=== PATIENT | female | born 1960 | race Two or more races ===

== ENCOUNTER → 2018-11-22 | Outpatient (CLI) | payer OTHER | END | disposition home or self-care (01) | LOC: NUCLEAR 07:00 | DX: R07.89 Other chest pain (principal) ==

== ENCOUNTER 2018-12-02 21:29 | Emergency (ER) | payer OTHER ==
[~2018-12-02] VITALS: Ht 154.9 cm; Wt 56.2 kg
[2018-12-03] MEDS ORDERED: TESSALON PERLE100 MG PO (02:47)
[2018-12-03] MEDS ORDERED: MUCINEX DM ER1 EAC1 PO (02:47)
[2018-12-03] MEDS ORDERED: AIRBORNE EFFER1 EACH PO (02:47)
[2018-12-03] MEDS ORDERED: OSEL75CA PO (02:47)
== END 2018-12-03 03:26 | disposition home or self-care (01) ==
LOC: ER 21:29
DX: J11.1 Influenza due to unidentified influenza virus with other respiratory manifestations (principal); R50.9 Fever, unspecified

== ENCOUNTER 2020-07-24 09:11 | Emergency (ER) | payer OTHER ==
[~2020-07-24] VITALS: Ht 154.9 cm; Wt 52.6 kg
[~2020-07-24 09:11] MED LIST: AIRBORNE EFFER1 EACH PO; MUCINEX DM ER1 EAC1 PO; OSEL75CA PO; TESSALON PERLE100 MG PO
== END 2020-07-24 11:49 | disposition home or self-care (01) ==
LOC: ER 09:11
DX: S61.411A Laceration without foreign body of right hand, initial encounter (principal); W45.8XXA Other foreign body or object entering through skin, initial encounter; Y93.E9 Activity, other interior property and clothing maintenance; Y92.010 Kitchen of single-family (private) house as the place of occurrence of the external cause; Y99.8 Other external cause status